=== PATIENT | female | born 1995 | race American Indian/Alaskan Native ===

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

== ENCOUNTER 2017-08-17 20:09 | Emergency (ER) | payer MEDICAID, OTHER ==
[2017-08-17 20:44] VITALS: BP 124/65; TEMP 98.6
[2017-08-17 21:03] VITALS: BMI 21.9
[2017-08-17] MEDS ORDERED: cefTRIAXone (Rocephin) 250 mg Inj IM STA (21:10)
[2017-08-17 21:53] VITALS: PULSE 65; RESP 18; O2SAT 99
--- NOTE | 2017-08-17 21:58 | ED PDOC ---
Arrival/HPI - General Chief Complaint: Female Genitourinary Time Seen by Provider: 08/17/17 20:20 Historian: Patient - History of Present Illness Narrative History of Present Illness (Text): 08/17/17 22:20 21-year-old female presents today for treatment for chlamydia. 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 Patient denies any complaints. No headache dizziness or weakness. No chest pain or shortness of breath. Patient denies abdominal pain. No nausea vomiting diarrhea constipation. Patient denies vaginal bleeding or vaginal discharge. Patient's stitches a history of chlamydia in the past. Patient states her and her partner were both treated for Chlamydia prior to her and then she switched partners. Past Medical History - Provider Review Nursing Documentation Reviewed: Yes - Travel History Have you recently traveled outside [place] w/in the past 3 mons?: No - Infectious Disease Hx of Infectious Diseases: None - Tetanus Immunization Tetanus Immunization: Unknown - Reproductive Menopause: No - Cardiac Hx Cardiac Disorders: No - Pulmonary Hx Respiratory Disorders: Yes Hx Asthma: Yes - Neurological Hx Neurological Disorder: No - HEENT Hx HEENT Disorder: No - Renal Hx Renal Disorder: No - Endocrine/Metabolic Hx Endocrine Disorders: No - Hematological/Oncological Hx Blood Disorders: Yes Hx Anemia: Yes Hx Blood Transfusions: Yes Other/Comment: iron infusions Tuesdays and - Integumentary Hx Dermatological Disorder: No - Musculoskeletal/Rheumatological Hx Musculoskeletal Disorders: No - Gastrointestinal Hx Gastrointestinal Disorders: No - Genitourinary/Gynecological Hx Genitourinary Disorders: No - Psychiatric Hx Psychophysiologic Disorder: No Hx Substance Use: No - Anesthesia Hx Anesthesia: No Hx Anesthesia Reactions: No Hx Malignant Hyperthermia: No Family/Social History - Physician Review Nursing Documentation Reviewed: Yes Family/Social History: Unknown Family HX Smoking Status: Never Smoked Hx Alcohol Use: No Hx Substance Use: No Allergies/Home Meds Allergies/Adverse Reactions: Allergies chocolate flavor Allergy (Verified 12/11/16 15:50) WHEEZING iodine Allergy (Verified 12/11/16 15:50) DIZZINESS latex Allergy (Verified 12/11/16 15:50) RASH surgical lubricant [From [employer]] Allergy (Verified 01/13/17 20:57) RASH Review of Systems - Review of Systems Constitutional: absent: Fatigue, Fevers Respiratory: absent: SOB, Cough Cardiovascular: absent: Chest Pain, Palpitations Gastrointestinal: absent: Abdominal Pain, Constipation, Diarrhea, Nausea, Vomiting Genitourinary Female: absent: Dysuria, Frequency, Hematuria Musculoskeletal: absent: Arthralgias, Back Pain, Neck Pain Skin: absent: Rash, Pruritis Neurological: absent: Headache, Dizziness Psychiatric: absent: Anxiety, Depression Physical Exam Vital Signs Reviewed: Yes Vital Signs Temp Pulse Resp BP Pulse Ox 08/17/17 20:43 98.6 F 104 H 20 124/65 100 Temperature: Afebrile Blood Pressure: Normal Pulse: Tachycardic Respiratory Rate: Normal Appearance: Positive for: Well-Appearing, Non-Toxic, Comfortable Pain Distress: None Mental Status: Positive for: Alert and Oriented X 3 - Systems Exam Head: Present: Atraumatic Mouth: Present: Moist Mucous Membranes Respiratory/Chest: Present: Clear to Auscultation Cardiovascular: Present: Regular Rate and Rhythm Abdomen: No: Tenderness Neurological: Present: GCS=15 Skin: Present: Warm, Dry, Normal Color. No: Rashes Psychiatric: Present: Alert, Oriented x 3 Medical Decision Making ED Course and Treatment: 08/17/17 22:00 Patient is nontoxic well-appearing in no distress with stable vital signs. Patient received phone call by her petroleum inspector supervisor that she was positive for chlamydia. She states she came to the emergency room instead of going to the petroleum inspector supervisor for treatment Ceftriaxone 250 mg IM Zithromax 1 g p.o. ordered. pt refused ceftriaxone injection.. will given 2g of zithromax po. Advised patient to refrain from sex for 10 days followup with the primary care physician within the next 2 days or return if symptoms worsen persist or if new symptoms develop. pt is requesting rx for albuterol hfa and nebulizer rx refill. Impression: std Followup with primary care physician within the next 2 days Follow up with INFECTION CONTROL PREVENTIONIST within the next 2 days. Return if symptoms worsen persist or if new symptoms develop - Medication Orders Current Medication Orders: Discontinued Medications Azithromycin (Zithromax) 1,000 mg PO STAT STA PRN Reason: Protocol Stop: 08/17/17 21:11 Last Admin: 08/17/17 21:46 Dose: 1,000 mg Ceftriaxone Sodium (Rocephin) 250 mg IM STAT STA PRN Reason: Protocol Stop: 08/17/17 21:11 Last Admin: 05/17/18 21:46 Dose: Not Given Non-Admin Reason: Patient Refused Disposition/Present on Arrival - Present on Arrival Any Indicators Present on Arrival: No History of DVT/PE: No History of Uncontrolled Diabetes: No Urinary Catheter: No History of Decub. Ulcer: No History Surgical Site Infection Following: None - Disposition Have Diagnosis and Disposition been Completed?: Yes Diagnosis: STD (sexually transmitted disease) Disposition: HOME/ ROUTINE Disposition Time: 21:51 Patient Plan: Discharge Patient Problems: Current Active Problems Problem Status Onset STD (sexually transmitted disease) Acute Condition: GOOD Discharge Instructions (ExitCare): Sexually-Transmitted Diseases (DC) Additional Instructions: Followup with primary care physician within the next 2 days Follow up with INFECTION CONTROL PREVENTIONIST within the next 2 days. Return if symptoms worsen persist or if new symptoms develop Prescriptions: Albuterol HFA [Ventolin HFA 90 mcg/actuation (8 g)] 2 puff IH [id number] PRN #1 inhaler PRN Reason: Cough Albuterol 0.083% [Albuterol 0.083% Inhal Teresa (2.5 mg/3 ml) UD] 1 vial IH TID PRN #1 packet PRN Reason: Cough Referrals: [facility] [place] [Outside] - Follow up with primary Marcy Dominique MD [Staff Provider] - Follow up with primary Yousif Smith MD [Staff Provider] - Follow up with primary Forms: [employer] (Wallisian), WORK NOTE
== END 2017-08-17 23:22 | disposition home or self-care (01) ==
LOC: ED 20:09
DX: Z20.2 Contact with and (suspected) exposure to infections with a predominantly sexual mode of transmission (principal)